=== PATIENT | male | born 1985 | race Caucasian/White ===

== ENCOUNTER → 2019-02-18 | Outpatient (CLI) | payer OTHER ==
--- NOTE | 2019-02-19 08:29 | KCIC ---
Examination: TESTICULAR/SCROTUM History: Left testicular swelling Comparison/Correlation: None Findings: Right testicle measures 5 cm x 3.3 cm x 2.9 cm. Left testicle measures 4.8 cm x 3.3 cm x 2.5 cm. Normal flow bilaterally is present. Normal echotexture bilaterally seen although a few punctate calcifications are present. Very small bilateral hydroceles are present. Left varicocele is present at the site of reported palpable abnormality reported by the patient. Right epididymal head measures up to 1.7 cm diameter. Left epididymal head measuring up to 0.9 cm is present. No solid mass identified. Impression: Left varicocele noted at the site of reported palpable abnormality. No suspicious process identified. Electronically signed by: Js Rucker MD (02/19/2019 8:26 AM) [id number]
== END | disposition home or self-care (01) ==
LOC: KCIC US 15:24
PROVIDERS: ATTEND Internal Medicine
DX: I86.1 Scrotal varices (principal); N43.3 Hydrocele, unspecified
CPT/HCPCS: 76870